=== PATIENT | male | born 1990 | race Asian ===

== ENCOUNTER 2021-04-01 20:26 | Emergency (ER) | payer BC ==
[~2021-04-01] VITALS: Ht 175.3 cm; Wt 61.4 kg
[2021-04-01] MEDS ORDERED: VANCOMYCIN PER PHARMACY MC PRN (23:15)
[2021-04-01] MEDS ORDERED: cefTRIAXone IV Push 1 GM VIAL. IVP ONE (23:30)
[2021-04-01] MEDS ORDERED: VANCOMYCIN 1.5 GM in IV NORMAL SALINE 500ML BAG 500 ML IV ONE (23:30)
--- NOTE | 2021-04-01 23:32 | PHYS DOC ---
Past Medical History Past Medical History: No Pertinent History Past Surgical History: Other Additional Past Surgical Histo: RIGHT ELBOW Smoking Status: Never Smoker Alcohol Use: None General Adult EDM: Chief Complaint: HAND PROBLEM HPI: HPI: 31-year-old male who denies any past medical history presents the ED with (patient consents to his/her/their knowledge and involvement in pts' medical care), complains of painful rash on left hand that started on Saturday after patient was cleaning a catfish on Saturday. Reports that while cleaning the catfish, pt punctured base of the first left thumb by a catfish fin, was able to remove the spine. Vaccines are up-to-date when patient moved to the [facility] in 2013. Reports he is vaccinated from [employer]. Denies any tobacco use. No prescribed medications. No known history of MRSA. Is right-hand dominant. Patient Thai-speaking and photographer services were offered-patient request to translate. Review of Systems: Review of Systems: Constitutional: Denies fever or chills. [] Eyes: Denies change in visual acuity. [] HENT: Denies nasal congestion or sore throat. [] Respiratory: Denies cough or shortness of breath. [] Cardiovascular: Denies chest pain or edema. [] GI: Denies nausea, vomiting, Musculoskeletal: Denies elbow or shoulder pain Integument: Denies diaphoresis or desquamation or skin color changes Neurologic: Denies focal weakness or sensory changes. [] Psychiatric: Denies depression or anxiety. [] Heart Score: C/O Chest Pain: No Risk Factors: Risk Factors: DM, Current or recent (<one month) smoker, HTN, HLP, family history of CAD, obesity. Risk Scores: Score 0 - 3: 2.5% MACE over next 6 weeks - Discharge Home Score 4 - 6: 20.3% MACE over next 6 weeks - Admit for Clinical Observation Score 7 - 10: 72.7% MACE over next 6 weeks - Early Invasive Strategies Current Medications: Current Medications Medications (Trade) Dose Ordered Sig/Yunier Start Time Stop Time Status Last Admin Dose Admin Vancomycin HCl (Vanco Per Pharmacy) 1 each PRN DAILY PRN 04/01/21 23:15 UNV Vancomycin HCl 1.5 gm/Sodium Chloride 500 ml @ 250 mls/hr 1X ONCE 04/01/21 23:30 04/02/21 01:29 Allergies: Allergies: Allergies Coded Allergies Type Severity Reaction Last Updated Verified No Known Drug Allergies 04/01/21 No Physical Exam: PE: Constitutional: No acute distress, HENT: Normocephalic, atraumatic, Eyes: EOMI, conjunctiva normal, no discharge. Neck: Normal range of motion, supple, Cardiovascular: S1/2 present, regular rhythm Lungs & Thorax: Speaking in full sentences, bilateral equal chest rise, no tachypnea or increased work of breathing Abdomen: soft, no tenderness, Skin: Warm, dry, no erythema, no rash. [] Back: No tenderness, no CVA tenderness. [] Extremities: No tenderness, no cyanosis, no lower extremity edema Neurologic: Alert and oriented X 3, normal motor function, normal sensory function, no focal deficits noted. [] Psychologic: Affect normal, judgement normal, mood normal. [] Current Patient Data: Vital Signs: Vital Signs Date Time Temp Pulse Resp B/P (MAP) Pulse Ox O2 Delivery O2 Flow Rate FiO2 04/01/21 21:30 98.6 70 18 127/75 (92) 100 Room Air 98.6 EKG: EKG: [] Radiology/Procedures: Radiology/Procedures: []IMAGING REPORT Signed PATIENT: PAYAM MICHELLE ACCOUNT: [id number] : 1990 LOCATION: ER AGE: 31 SEX: M EXAM STATUS: REG ER ORD. PHYSICIAN: VIDA LOPEZ DO REASON: cellulitis PROCEDURE: HAND LEFT 3V Left forearm 2 views: Reason for examination: Cellulitis. No acute fracture or dislocation is seen. The bone density is normal. No abnormal periosteal reaction is evident. No gross abnormalities are seen at the wrist or elbow joints. No joint effusion is seen at the elbow. There does appear to be some soft tissue swelling distally. IMPRESSION: No acute bony abnormalities in the left forearm. Soft tissue swelling is present distally. Right hand 3 views: No fracture or dislocation is seen. The bone density is normal. No abnormal periosteal reaction is seen. Joint spaces are maintained. No gross soft tissue abnormalities are evident. IMPRESSION: No acute abnormality evident at the right hand Electronically signed by: Bertrand Lazaro MD (04/02/2021 1:53 AM) ARCHIE DICTATED and SIGNED BY: BERTRAND LAZARO MD DATE: 04/02/21 [id number] 0 Course & Med Decision Making: Course & Med Decision Making Pertinent Labs and Imaging studies reviewed. (See chart for details) Concern for cellulitis of left hand extending up patient's forearm in the setting of pain, no signs of compartment syndrome. Patient with no sepsis. X- ray with no free air (doubt vibrio infection). Tetanus updated in ED. PMC with no hand surgery coverage (I d/w ortho-Dr. Smith, no plastics rehabilitation clerk per schedule). Vancomycin infusion almost complete (2 hours, approx 100cc left), when complained that patient had an itchy pruritic rash over his chest and arms with upper lip swelling. Patient denies any speech changes, drooling, head or neck swelling, difficulties breathing. No prior history of allergic reactions. [facility]-they were updated about change in status given angioedema from vancomycin that was immediately stopped. Patient was treated with dexamethasone, Benadryl and Pepcid and observed closely. Patient was stable at time of transfer. I have spoken with the patient and/or caregivers. I have explained the patient's condition, diagnosis and treatment plan based on the information available to me at this time. I have answered the patient's and/or caregivers questions and answered any concerns. The patient and/or caregivers have as good an understanding of the patient's diagnosis, condition and treatment plan as can be expected at this point. The patient has been stabilized within the capability of the emergency department. The patient will be transported for further care and management or will be moved to an observation or inpatient service. I have communicated with the staff or medical practitioner taking over this patient's care. Calvin Disclaimer: Calvin Disclaimer: This electronic medical record was generated, in whole or in part, using a voice recognition dictation system. Departure Departure Impression: Primary Impression: Cellulitis of left hand Additional Impressions: Cellulitis of left forearm Need for Tdap vaccination Angioedema of lips Vancomycin adverse reaction Disposition: 02 [facility] (, accepted by Monae Epperson) [facility] Apr 01, 2021 23[facility]32
[2021-04-01 23:53] LABS: BASO % 0 % (0-3); EOS # 0.1 x10^3/uL (0.0-0.7); EOS % 1 % (0-3); HEMATOCRIT 39.6 % (39.0-53.0); HEMOGLOBIN 13.8 g/dL (13.0-17.5); LYMPH # 1.6 x10^3/uL (1.0-4.8); LYMPH % 17 % (24-48); MEAN CORPUSCULAR HEMOGLOBIN 31 pg (25-35); MEAN CORPUSCULAR HGB CONC 35 g/dL (31-37); MEAN CORPUSCULAR VOLUME 88 fL (79-100); MONO # 0.8 x10^3/uL (0.0-1.1); MONO % 9 % (0-9); NEUT # 6.9 x10^3/uL (1.8-7.7); NEUT % 73 % (31-73); PLATELET COUNT 195 x10^3/uL (140-400); RED BLOOD COUNT 4.52 x10^6/uL (4.30-5.70); RED CELL DISTRIBUTION WIDTH 12.6 % (11.5-14.5); WHITE BLOOD COUNT 9.5 x10^3/uL (4.0-11.0)
[2021-04-02 00:02] LABS: CALCIUM 9.1 mg/dL (8.5-10.1); GFR 86.6; POTASSIUM 3.6 mmol/L (3.5-5.1)
[2021-04-02 00:08] LABS: ALBUMIN 4.3 g/dL (3.4-5.0); ALBUMIN/GLOBULIN RATIO 1.1 (1.0-1.7); TOTAL BILIRUBIN 0.5 mg/dL (0.2-1.0); TOTAL PROTEIN 8.3 g/dL (6.4-8.2)
[2021-04-02] MEDS ORDERED: ONDANSETRON PF 4 MG/2 ML VIAL. ONE (00:19)
[2021-04-02] MEDS ORDERED: ONDANSETRON PF 4 MG/2 ML VIAL. IVP ONE (00:30)
[2021-04-02] MEDS ORDERED: DIPH,PERTUSS(ACELL),TET VAC/PF 0.5 ML SYRINGE. VAX IM ONE (01:45)
--- NOTE | 2021-04-02 01:56 | RAD ---
Left forearm 2 views: Reason for examination: Cellulitis. No acute fracture or dislocation is seen. The bone density is normal. No abnormal periosteal reaction is evident. No gross abnormalities are seen at the wrist or elbow joints. No joint effusion is seen at the elbow. There does appear to be some soft tissue swelling distally. IMPRESSION: No acute bony abnormalities in the left forearm. Soft tissue swelling is present distally. Right hand 3 views: No fracture or dislocation is seen. The bone density is normal. No abnormal periosteal reaction is se en. Joint spaces are maintained. No gross soft tissue abnormalities are evident. IMPRESSION: No acute abnormality evident at the right hand Electronically signed by: Natalie Valverde MD (04/02/2021 1:53 AM) ARCHIE
[2021-04-02] MEDS ORDERED: IV NORMAL SALINE 1000ML BAG 1,000 ML IV ONE (02:30)
[2021-04-02] MEDS ORDERED: METOCLOPRAMIDE HCL 10 MG/2 ML VIAL. IVP ONE (02:30)
[2021-04-02] MEDS ORDERED: FAMOTIDINE 20 MG/2 ML VIAL IVP ONE (02:30)
[2021-04-02] MEDS ORDERED: DEXAMETHASONE SOD PHOS 20 MG/5 ML VIAL. IV ONE (02:30)
[2021-04-02] MEDS ORDERED: diphenhydrAMINE 50 MG/ML VIAL ONE (02:44)
[2021-04-02] MEDS ORDERED: diphenhydrAMINE 50 MG/ML VIAL IVP ONE (02:45)
[2021-04-02 03:17] VITALS: BP 122/69
== END 2021-04-02 03:40 | disposition short-term general hospital (02) ==
LOC: ER 20:26
DX: T78.3XXA Angioneurotic edema, initial encounter (principal); T36.8X5A Adverse effect of other systemic antibiotics, initial encounter; L03.114 Cellulitis of left upper limb; Y92.89 Other specified places as the place of occurrence of the external cause
CPT/HCPCS: 36415; 73090; 73130; 80053; 83605; 85025; 87040; 90471; 90715; 96361; 96365; 96366; 96375; 99285; J0696; J1100; J1200; J2405; J3370; J3490; J7030; J7040